=== PATIENT | male | born 1950 | race Caucasian/White ===

== ENCOUNTER → 2017-07-18 | Outpatient (CLI) | payer MEDICARE, OTHER ==
[~2017-07-18] MED LIST: OMNIPAQUE 350 MG/ML, 100ML BOTTLE ONE
== END | disposition home or self-care (01) ==
LOC: CFH 13:18
PROVIDERS: ATTEND Thoracic Surgery (Cardiothoracic Vascular Surgery)
DX: Z01.810 Encounter for preprocedural cardiovascular examination (principal); I71.2 Thoracic aortic aneurysm, without rupture; I70.0 Atherosclerosis of aorta
CPT/HCPCS: 71275; 82565; Q9967

== ENCOUNTER 2017-08-26 11:30 | Inpatient (IN) | payer MEDICARE, OTHER ==
[~2017-08-26] VITALS: Ht 182.9 cm; Wt 87.4 kg
[2017-08-26] MEDS ORDERED: ALLO100T30 PO (13:36)
[2017-08-26] MEDS ORDERED: BENA1TAB10 PO (13:36)
[2017-08-26] MEDS ORDERED: ASPI-496 PO (13:36)
[2017-08-26] MEDS ORDERED: ATOR20TA PO (13:36)
[2017-08-26] MEDS ORDERED: CITA40TA5 PO (13:36)
[2017-08-26 14:02] LABS: HEMATOCRIT 41.2 % (39.2-51.8); HEMOGLOBIN 14.1 g/dL (13.7-18.0); WHITE BLOOD COUNT 5.5 x10^3/uL (3.4-10)
[2017-08-26 14:13] LABS: ASPARTATE AMINO TRANSFERASE 13 U/L (15-37); BLOOD UREA NITROGEN 13 mg/dL (7-18)
[2017-08-27] VITALS (11 sets, daily range): BP systolic 89–133; BP diastolic 41–79
[2017-08-27] MEDS ORDERED: DO NOT GIVE MC SCH (05:00)
[2017-08-27] MEDS ORDERED: CHLORHEXIDINE MOUTHWASH 15 ML UDC MM SCH (05:00)
[2017-08-27] MEDS ORDERED: ALBUMIN HUMAN 5% 500 ML IV ONE (05:00)
[2017-08-27] MEDS ORDERED: INSULIN ASPART 100 UNITS/ML, PEN SQ-INSULIN SCH (06:00)
[2017-08-27] MEDS ORDERED: FENTANYL PF 1000 MCG/20ML ONE (06:26)
[2017-08-27] MEDS ORDERED: ROCURONIUM 10 MG/ML,10ML ONE ×2 (06:27→08:13)
[2017-08-27] MEDS ORDERED: PHENYLEPHRINE 10 MG/ML ONE (06:27)
[2017-08-27] MEDS ORDERED: CALCIUM CHLORIDE 10%, 10ML SYR ONE (06:27)
[2017-08-27] MEDS ORDERED: PROPOFOL 10 MG/ML, 20ML ONE (06:27)
[2017-08-27] MEDS ORDERED: MIDAZOLAM 10MG/2 ML ONE (06:27)
[2017-08-27] MEDS ORDERED: EPINEPHRINE 1 MG/ML, 1ML ONE (06:27)
[2017-08-27] MEDS ORDERED: LIDOCAINE GEL 2%, 5ML ONE (06:28)
[2017-08-27] MEDS ORDERED: DEXMEDETOMIDINE 200 MCG in SODIUM CHLORIDE 0.9% 48 ML IV SCH (07:30)
[2017-08-27] MEDS ORDERED: VANCOMYCIN 1,400 MG in SODIUM CHLORIDE 0.9% 250 ML IV PRN (07:30)
[2017-08-27] MEDS ORDERED: REGULAR INSULIN 62.5 UNITS in SODIUM CHLORIDE 0.9% 249.375 ML IV PRN ×2 (07:30→11:57)
[2017-08-27] MEDS ORDERED: EPINEPHRINE 2 MG in SODIUM CHLORIDE 0.9% 248 ML IV SCH (07:30)
[2017-08-27] MEDS ORDERED: MANNITOL PMX 20% 500 ML IVPB PRN (07:30)
[2017-08-27] MEDS ORDERED: PHENYLEPHRINE 10 MG in SODIUM CHLORIDE 0.9% 249 ML IV PRN ×2 (07:30→11:57)
[2017-08-27] MEDS ORDERED: POTASSIUM CHLORIDE 80 MEQ, SODIUM BICARBONATE 8.4% 10 MEQ, MAGNESIUM SULFATE 0.5 GM, LI... IV PRN (07:30)
[2017-08-27] MEDS ORDERED: CEFUROXIME 1.5 GM in SODIUM CHLORIDE 0.9% 50 ML IVPB PRN (07:30)
[2017-08-27] MEDS ORDERED: MUPIROCIN OINT 2%, 22GM TP SCH (09:00)
[2017-08-27] MEDS ORDERED: SODIUM CHLORIDE FLUSH 10ML SYR IVF SCH (09:00)
[2017-08-27] MEDS ORDERED: PROTAMINE SULFATE 10 MG/ML, 25ML ONE ×2 (10:04)
[2017-08-27] MEDS ORDERED: NITROGLYCERIN/D5W PMX 240 ML IV PRN (11:57)
[2017-08-27] MEDS ORDERED: SODIUM CHLORIDE 0.9% 1,000 ML IV PRN (11:57)
[2017-08-27] MEDS ORDERED: DEXMEDETOMIDINE 200 MCG in SODIUM CHLORIDE 0.9% 48 ML IV PRN (11:57)
[2017-08-27] MEDS ORDERED: VASOPRESSIN 50 UNIT in SODIUM CHLORIDE 0.9% 247.5 ML IV PRN (11:57)
[2017-08-27] MEDS ORDERED: DOBUTAMINE 250 MG in SODIUM CHLORIDE 0.9% 230 ML IV PRN (11:57)
[2017-08-27] MEDS ORDERED: BISACODYL 10 MG SUPP PR PRN (12:00)
[2017-08-27] MEDS ORDERED: SODIUM BICARB 8.4%, 50ML SYRINGE IV PRN (12:00)
[2017-08-27] MEDS ORDERED: EPINEPHRINE 2 MG in SODIUM CHLORIDE 0.9% 248 ML IV PRN (12:00)
[2017-08-27] MEDS ORDERED: DEXTROSE 4 GM TAB.CHEW PO PRN (12:00)
[2017-08-27] MEDS ORDERED: INSULIN REGULAR 100 UNITS/ML, 3ML VIAL IVPush PRN (12:00)
[2017-08-27] MEDS: CHLORHEXIDINE MOUTHWASH 15 ML UDC MM SCH (12:00)
[2017-08-27] MEDS ORDERED: DEXTROSE 50%, 50ML SYRINGE IVPush PRN (12:00)
[2017-08-27] MEDS ORDERED: ACETAMINOPHEN 325 MG TABLET PO PRN (12:00)
[2017-08-27] MEDS ORDERED: MIDAZOLAM 1 MG/ML, 5ML IVPush PRN (12:00)
[2017-08-27] MEDS: KSCALE TO 4.5 IV SCH ×2 (12:00→18:00)
[2017-08-27] MEDS ORDERED: ACETAMINOPHEN 650 MG SUPP PR PRN (12:00)
[2017-08-27] MEDS ORDERED: BISACODYL 5 MG EC TABLET PO PRN (12:00)
[2017-08-27] MEDS ORDERED: GLUCAGON 1 MG IM PRN (12:00)
[2017-08-27] MEDS ORDERED: PROCHLORPERAZINE 5 MG/ML, 2ML IVPush PRN (12:00)
[2017-08-27] MEDS ORDERED: LACTATED RINGERS 1,000 ML IV PRN (12:00)
[2017-08-27] MEDS ORDERED: methylPREDNISolone SOD SUCC 125 MG/2 ML ONE (12:09)
[2017-08-27] MEDS ORDERED: SODIUM BICARB 8.4%, 50ML SYRINGE ONE ×2 (12:09→12:10)
[2017-08-27] MEDS ORDERED: LIDOCAINE 2% 100MG/5ML SYRINGE ONE (12:09)
[2017-08-27] MEDS ORDERED: ALBUMIN HUMAN 25% 50 ML ONE (12:10)
[2017-08-27] MEDS ORDERED: HEPARIN 1,000 UNITS/ML, 30ML ONE (12:10)
[2017-08-27] MEDS ORDERED: TRANEXAMIC ACID 100 MG/ML, 10ML ONE (12:11)
[2017-08-27 12:32] LABS: ABG COLLECTION SITE ARTERIAL LINE
[2017-08-27] MEDS: morphine SULFATE 10 MG/ML, 1ML IVPush PRN ×2 (12:45→13:15)
[2017-08-27] MEDS ORDERED: CALCIUM CHLORIDE 13.6 MEQ in SODIUM CHLORIDE 0.9% 100 ML IV ONE (13:00)
[2017-08-27] MEDS: MAGNESIUM SULFATE 1 GM in SODIUM CHLORIDE 0.9% 50 ML IVPB SCH (14:10)
[2017-08-27] MEDS ORDERED: POTASSIUM CHLORIDE 30 MEQ in SODIUM CHLORIDE 0.9% 100 ML IV ONE (14:30)
[2017-08-27 15:03] LABS: HEMATOCRIT 26.2 % (39.2-51.8); HEMOGLOBIN 8.8 g/dL (13.7-18.0)
[2017-08-27] MEDS ORDERED: NOVOSEVEN RT (FACTOR VIIA) RECOMB 1,000 MCG IVPush ONE ×2 (15:30)
[2017-08-27] MEDS ORDERED: DEXMEDETOMIDINE 1,000 MCG in SODIUM CHLORIDE 0.9% 240 ML IV PRN (16:00)
[2017-08-27] MEDS: INSULIN ASPART 100 UNITS/ML, PEN SQ-INSULIN SCH ×2 (16:00→21:00)
[2017-08-27] MEDS: ONDANSETRON 2MG/ML, 2ML IVPush PRN (18:34)
[2017-08-27 18:47] LABS: HEMATOCRIT 28.2 % (39.2-51.8); HEMOGLOBIN 9.8 g/dL (13.7-18.0)
[2017-08-27] MEDS: CEFUROXIME 1.5 GM in SODIUM CHLORIDE 0.9% 50 ML IVPB SCH (19:34)
[2017-08-27] MEDS: HYDROcodone/APAP 10/325 MG TABLET PO PRN (20:34)
[2017-08-27] MEDS: VANCOMYCIN 1,300 MG in SODIUM CHLORIDE 0.9% 250 ML IVPB SCH (20:40)
[2017-08-27] MEDS: MUPIROCIN OINT 2%, 22GM NAS SCH (21:00)
[2017-08-27] MEDS: SODIUM CHLORIDE FLUSH 10ML SYR IVF SCH (21:11)
[2017-08-27] MEDS: OXYcodone IR 5MG TABLET PO PRN (21:53)
[2017-08-28 00:21] LABS: HEMATOCRIT 27.4 % (39.2-51.8); HEMOGLOBIN 9.3 g/dL (13.7-18.0)
[2017-08-28] MEDS: HYDROcodone/APAP 10/325 MG TABLET PO PRN ×4 (00:29→20:09)
[2017-08-28] MEDS: INSULIN ASPART 100 UNITS/ML, PEN SQ-INSULIN SCH ×6 (00:30→20:12)
[2017-08-28] MEDS: morphine SULFATE 10 MG/ML, 1ML IVPush PRN ×2 (01:30→02:59)
[2017-08-28] MEDS: CHLORHEXIDINE MOUTHWASH 15 ML UDC MM SCH ×2 (01:53→12:27)
[2017-08-28] MEDS: OXYcodone IR 5MG TABLET PO PRN (02:21)
[2017-08-28] MEDS: KSCALE TO 4.5 IV SCH ×2 (06:00)
[2017-08-28 06:04] LABS: ABG COLLECTION SITE ARTERIAL LINE
[2017-08-28 06:18] LABS: HEMATOCRIT 26.7 % (39.2-51.8); HEMOGLOBIN 9.1 g/dL (13.7-18.0); WHITE BLOOD COUNT 9.8 x10^3/uL (3.4-10)
[2017-08-28 06:23] LABS: BLOOD UREA NITROGEN 15 mg/dL (7-18)
[2017-08-28] MEDS ORDERED: METOPROLOL TARTRATE 25 MG TABLET PO SCH (07:00)
[2017-08-28] MEDS ORDERED: KETOROLAC 30 MG/1 ML IVPush PRN (07:00)
[2017-08-28] MEDS ORDERED: POTASSIUM CHLORIDE PMX 100 ML IV ONE (07:00)
[2017-08-28] MEDS: CEFUROXIME 1.5 GM in SODIUM CHLORIDE 0.9% 50 ML IVPB SCH (07:51)
[2017-08-28] MEDS: FUROSEMIDE 40 MG/4 ML IV SCH ×2 (07:52→17:00)
[2017-08-28] MEDS: LISINOPRIL 10 MG TABLET PO SCH ×2 (08:11→21:00)
[2017-08-28] MEDS: POTASSIUM CHLORIDE 20 MEQ TAB.ER.PRT PO SCH ×2 (08:11→17:00)
[2017-08-28] MEDS: ASPIRIN 81 MG TABLET EC PO SCH (08:11)
[2017-08-28] MEDS: ONDANSETRON 2MG/ML, 2ML IVPush PRN (08:30)
[2017-08-28] MEDS ORDERED: DIAZEPAM 5 MG/ML, 2ML IV SCH (09:00)
[2017-08-28] MEDS: WARFARIN BIOPROSTHETIC VALVE PROTOCOL 2-3 XX SCH (09:00)
[2017-08-28] MEDS: VANCOMYCIN 1,300 MG in SODIUM CHLORIDE 0.9% 250 ML IVPB SCH (09:11)
[2017-08-28] MEDS: SODIUM CHLORIDE FLUSH 10ML SYR IVF SCH ×2 (12:23→20:07)
[2017-08-28] MEDS: ALLOPURINOL 100 MG TABLET PO SCH (12:24)
[2017-08-28] MEDS: MUPIROCIN OINT 2%, 22GM NAS SCH ×2 (12:24→20:08)
[2017-08-28] MEDS: CITALOPRAM 20 MG TABLET PO SCH (12:24)
[2017-08-28 12:37] LABS: HEMATOCRIT 27.2 % (39.2-51.8); HEMOGLOBIN 9.4 g/dL (13.7-18.0)
[2017-08-28] MEDS: MAGNESIUM SULFATE 1 GM in SODIUM CHLORIDE 0.9% 50 ML IVPB SCH (13:26)
[2017-08-28] MEDS ORDERED: WARFARIN 5 MG TABLET PO-COUM ONE (18:00)
[2017-08-28] MEDS: ATORVASTATIN 20 MG TABLET PO SCH (20:30)
[2017-08-29] MEDS: CHLORHEXIDINE MOUTHWASH 15 ML UDC MM SCH ×2 (00:45→13:37)
[2017-08-29] MEDS: HYDROcodone/APAP 10/325 MG TABLET PO PRN ×2 (00:48→21:39)
[2017-08-29 04:20] LABS: ABG COLLECTION SITE LEFT BRACHIAL
[2017-08-29] MEDS: HYDROcodone/APAP 5/325 TABLET PO PRN (05:21)
[2017-08-29 06:33] LABS: HEMATOCRIT 27.1 % (39.2-51.8); HEMOGLOBIN 9.3 g/dL (13.7-18.0); WHITE BLOOD COUNT 10.5 x10^3/uL (3.4-10)
[2017-08-29 06:44] LABS: BLOOD UREA NITROGEN 14 mg/dL (7-18)
[2017-08-29] MEDS: INSULIN ASPART 100 UNITS/ML, PEN SQ-INSULIN SCH ×4 (06:48→21:31)
[2017-08-29] MEDS ORDERED: MAGNESIUM HYDROXIDE 8%, 30ML UDC PO PRN (07:30)
[2017-08-29] MEDS: LISINOPRIL 10 MG TABLET PO SCH ×2 (07:53→21:27)
[2017-08-29] MEDS: POTASSIUM CHLORIDE 20 MEQ TAB.ER.PRT PO SCH ×2 (07:53→16:58)
[2017-08-29] MEDS: ALLOPURINOL 100 MG TABLET PO SCH (07:53)
[2017-08-29] MEDS: ASPIRIN 81 MG TABLET EC PO SCH (07:54)
[2017-08-29] MEDS: CITALOPRAM 20 MG TABLET PO SCH (07:54)
[2017-08-29] MEDS: FUROSEMIDE 40 MG/4 ML IV SCH ×2 (07:55→17:02)
[2017-08-29] MEDS: MUPIROCIN OINT 2%, 22GM NAS SCH ×2 (07:55→21:29)
[2017-08-29] MEDS: SODIUM CHLORIDE FLUSH 10ML SYR IVF SCH ×3 (07:56→21:30)
[2017-08-29] MEDS: WARFARIN BIOPROSTHETIC VALVE PROTOCOL 2-3 XX SCH (10:42)
[2017-08-29] MEDS: MAGNESIUM SULFATE 1 GM in SODIUM CHLORIDE 0.9% 50 ML IVPB SCH (13:37)
[2017-08-29 16:55] VITALS: BP 127/67
[2017-08-29] MEDS ORDERED: WARFARIN 5 MG TABLET PO-COUM SCH (18:00)
[2017-08-29 19:45] VITALS: BP 110/67
[2017-08-29] MEDS: ATORVASTATIN 20 MG TABLET PO SCH (21:28)
[2017-08-30 02:07] VITALS: BP 125/79
[2017-08-30] MEDS: HYDROcodone/APAP 10/325 MG TABLET PO PRN ×2 (02:15→20:29)
[2017-08-30 05:50] LABS: BLOOD UREA NITROGEN 11 mg/dL (7-18)
[2017-08-30 06:11] LABS: HEMATOCRIT 25.5 % (39.2-51.8); HEMOGLOBIN 8.7 g/dL (13.7-18.0); WHITE BLOOD COUNT 6.7 x10^3/uL (3.4-10)
[2017-08-30 06:47] VITALS: BP 136/69
[2017-08-30] MEDS: INSULIN ASPART 100 UNITS/ML, PEN SQ-INSULIN SCH ×2 (07:00→11:31)
[2017-08-30] MEDS: FUROSEMIDE 40 MG/4 ML IV SCH ×2 (07:30→17:00)
[2017-08-30] MEDS: ASPIRIN 81 MG TABLET EC PO SCH (08:08)
[2017-08-30] MEDS: POTASSIUM CHLORIDE 20 MEQ TAB.ER.PRT PO SCH ×2 (08:09→17:13)
[2017-08-30] MEDS: ALLOPURINOL 100 MG TABLET PO SCH (08:09)
[2017-08-30] MEDS: LISINOPRIL 10 MG TABLET PO SCH ×2 (08:09→20:19)
[2017-08-30] MEDS: SODIUM CHLORIDE FLUSH 10ML SYR IVF SCH ×4 (08:09→20:19)
[2017-08-30] MEDS: CITALOPRAM 20 MG TABLET PO SCH (08:09)
[2017-08-30] MEDS: WARFARIN BIOPROSTHETIC VALVE PROTOCOL 2-3 XX SCH (08:10)
[2017-08-30] MEDS: MUPIROCIN OINT 2%, 22GM NAS SCH ×2 (08:10→20:18)
[2017-08-30] MEDS ORDERED: DOCUSATE 100 MG CAPSULE ONE (08:19)
[2017-08-30] MEDS: DOCUSATE 100 MG CAPSULE PO SCH ×2 (08:23→20:19)
[2017-08-30] MEDS ORDERED: DOCUSATE 50 MG/5 ML, 10ML UDC PO SCH (09:00)
[2017-08-30] MEDS ORDERED: FILTER 0.22 MICRON FOR AMIODARONE IV PRN (10:00)
[2017-08-30] MEDS ORDERED: AMIODARONE 900 MG in DEXTROSE 5% 482 ML IV PRN (10:00)
[2017-08-30] MEDS ORDERED: AMIODARONE 150 MG in DEXTROSE 5% 100 ML IV ONE (10:00)
[2017-08-30] MEDS: HYDROcodone/APAP 5/325 TABLET PO PRN (10:40)
[2017-08-30 14:54] VITALS: BP 106/70
[2017-08-30] MEDS ORDERED: WARFARIN 7.5 MG TABLET PO-COUM SCH (18:00)
[2017-08-30 20:11] VITALS: BP 110/69
[2017-08-30] MEDS: ATORVASTATIN 20 MG TABLET PO SCH (20:19)
[2017-08-31 02:21] VITALS: BP 113/70
[2017-08-31] MEDS: HYDROcodone/APAP 10/325 MG TABLET PO PRN ×2 (03:01→22:50)
[2017-08-31 05:23] LABS: BLOOD UREA NITROGEN 18 mg/dL (7-18)
[2017-08-31 05:28] LABS: HEMOGLOBIN 8.9 g/dL (13.7-18.0); WHITE BLOOD COUNT 5.7 x10^3/uL (3.4-10)
[2017-08-31 06:35] VITALS: BP 130/63
[2017-08-31] MEDS: MUPIROCIN OINT 2%, 22GM NAS SCH ×2 (08:45→22:53)
[2017-08-31] MEDS: ALLOPURINOL 100 MG TABLET PO SCH (08:46)
[2017-08-31] MEDS: DOCUSATE 100 MG CAPSULE PO SCH ×2 (08:46→22:50)
[2017-08-31] MEDS: ASPIRIN 81 MG TABLET EC PO SCH (08:46)
[2017-08-31] MEDS: POTASSIUM CHLORIDE 20 MEQ TAB.ER.PRT PO SCH ×2 (08:46→22:51)
[2017-08-31] MEDS: CITALOPRAM 20 MG TABLET PO SCH (08:46)
[2017-08-31] MEDS: LISINOPRIL 10 MG TABLET PO SCH ×2 (08:46→22:50)
[2017-08-31] MEDS: SODIUM CHLORIDE FLUSH 10ML SYR IVF SCH ×4 (08:47→22:53)
[2017-08-31] MEDS: FUROSEMIDE 40 MG/4 ML IV SCH ×2 (08:47→17:39)
[2017-08-31] MEDS: WARFARIN BIOPROSTHETIC VALVE PROTOCOL 2-3 XX SCH (08:50)
[2017-08-31 13:09] VITALS: BP 100/67
[2017-08-31] MEDS: HYDROcodone/APAP 5/325 TABLET PO PRN (13:34)
[2017-08-31] MEDS ORDERED: WARFARIN 10 MG TABLET PO-COUM SCH (18:00)
[2017-08-31 19:57] VITALS: BP 96/63
[2017-08-31] MEDS: ATORVASTATIN 20 MG TABLET PO SCH (22:51)
[2017-09-01 01:39] VITALS: BP 112/58
[2017-09-01] MEDS: HYDROcodone/APAP 10/325 MG TABLET PO PRN ×2 (04:23→12:55)
[2017-09-01 04:50] LABS: HEMATOCRIT 27.5 % (39.2-51.8); HEMOGLOBIN 9.6 g/dL (13.7-18.0); WHITE BLOOD COUNT 5.2 x10^3/uL (3.4-10)
[2017-09-01 04:53] LABS: BLOOD UREA NITROGEN 20 mg/dL (7-18)
[2017-09-01 08:00] VITALS: BP 120/77
[2017-09-01] MEDS: SODIUM CHLORIDE FLUSH 10ML SYR IVF SCH ×2 (09:00→10:03)
[2017-09-01] MEDS: WARFARIN BIOPROSTHETIC VALVE PROTOCOL 2-3 XX SCH (09:00)
[2017-09-01] MEDS ORDERED: POTA20TA14 PO (09:47)
[2017-09-01] MEDS ORDERED: LISI-167 PO (09:47)
[2017-09-01] MEDS ORDERED: ASPI-621 PO (09:47)
[2017-09-01] MEDS ORDERED: WARF5TAB PO (09:47)
[2017-09-01] MEDS ORDERED: DOCU-131 PO (09:47)
[2017-09-01] MEDS ORDERED: FURO40TA6 PO (09:47)
[2017-09-01] MEDS: POTASSIUM CHLORIDE 20 MEQ TAB.ER.PRT PO SCH (10:00)
[2017-09-01] MEDS: ALLOPURINOL 100 MG TABLET PO SCH (10:00)
[2017-09-01] MEDS: ASPIRIN 81 MG TABLET EC PO SCH (10:00)
[2017-09-01] MEDS: CITALOPRAM 20 MG TABLET PO SCH (10:01)
[2017-09-01] MEDS: LISINOPRIL 10 MG TABLET PO SCH (10:01)
[2017-09-01] MEDS: DOCUSATE 100 MG CAPSULE PO SCH (10:01)
[2017-09-01] MEDS: MUPIROCIN OINT 2%, 22GM NAS SCH (10:02)
[2017-09-01] MEDS: FUROSEMIDE 40 MG/4 ML IV SCH (10:04)
[2017-09-01] MEDS ORDERED: HYDR-3245 PO (14:30)
[2017-09-01] MEDS ORDERED: WARFARIN 7.5 MG TABLET PO-COUM ONE (18:00)
== END 2017-09-01 15:40 | disposition home health service (06) | DRG 219 ==
LOC: 5SO 08-27 04:22 → EDSTATUS 08-27 07:30 → CSU 08-27 08:22 → 5SO 08-29 15:01
PROVIDERS: ADMIT Thoracic Surgery (Cardiothoracic Vascular Surgery); ATTEND Thoracic Surgery (Cardiothoracic Vascular Surgery)
PROC: 02RF08Z Replacement of Aortic Valve with Zooplastic Tissue, Open Approach (ICD-10-PCS; 2017-08-27)
PROC: 02RX08Z Replacement of Thoracic Aorta, Ascending/Arch with Zooplastic Tissue, Open Approach (ICD-10-PCS; 2017-08-27)
PROC: 5A1223Z Performance of Cardiac Pacing, Continuous (ICD-10-PCS; 2017-08-27)
PROC: 5A1221Z Performance of Cardiac Output, Continuous (ICD-10-PCS; 2017-08-27)
PROC: B24BZZ4 Ultrasonography of Heart with Aorta, Transesophageal (ICD-10-PCS; 2017-08-27)
PROC: 30233N1 Transfusion of Nonautologous Red Blood Cells into Peripheral Vein, Percutaneous Approach (ICD-10-PCS; 2017-08-27)
PROC: 02HP32Z Insertion of Monitoring Device into Pulmonary Trunk, Percutaneous Approach (ICD-10-PCS; 2017-08-27)
PROC: 4A133B3 Monitoring of Arterial Pressure, Pulmonary, Percutaneous Approach (ICD-10-PCS; 2017-08-27)
PROC: 4A1239Z Monitoring of Cardiac Output, Percutaneous Approach (ICD-10-PCS; 2017-08-27)
PROC: 30233L1 Transfusion of Nonautologous Fresh Plasma into Peripheral Vein, Percutaneous Approach (ICD-10-PCS; 2017-08-27)
PROC: 30233R1 Transfusion of Nonautologous Platelets into Peripheral Vein, Percutaneous Approach (ICD-10-PCS; 2017-08-27)
PROC: 30233M1 Transfusion of Nonautologous Plasma Cryoprecipitate into Peripheral Vein, Percutaneous Approach (ICD-10-PCS; 2017-08-27)
PROC: 30233K1 Transfusion of Nonautologous Frozen Plasma into Peripheral Vein, Percutaneous Approach (ICD-10-PCS; 2017-08-27)
PROC: B246ZZ4 Ultrasonography of Right and Left Heart, Transesophageal (ICD-10-PCS; principal; 2017-08-27 07:30)
DX: I08.0 Rheumatic disorders of both mitral and aortic valves (principal); J96.20 Acute and chronic respiratory failure, unspecified whether with hypoxia or hypercapnia; I11.0 Hypertensive heart disease with heart failure; I50.42 Chronic combined systolic (congestive) and diastolic (congestive) heart failure; D62 Acute posthemorrhagic anemia; I71.2 Thoracic aortic aneurysm, without rupture; E78.5 Hyperlipidemia, unspecified; F41.9 Anxiety disorder, unspecified; F10.20 Alcohol dependence, uncomplicated; I25.10 Atherosclerotic heart disease of native coronary artery without angina pectoris; I70.0 Atherosclerosis of aorta; R09.02 Hypoxemia; Z79.82 Long term (current) use of aspirin; Z79.899 Other long term (current) drug therapy
CPT/HCPCS: 36415; 36600; 71010; 71020; 80048; 80053; 81003; 82040; 82330; 82800; 82803; 82810; 82947; 82962; 83036; 83735; 84132; 84295; 85014; 85018; 85025; 85049; 85347; 85610; 85730; 86850; 86900; 86923; 87081; 88304; 88305; 88311; 93005; 93312; 93321; 93325; 93880; 94002; 94003; C1768; J0171; J0697; J1644; J1815; J1940; J2250; J2405; J2704; J2720; J3010; J3370; J3475; J3480; J3490; J7189; P9045; P9047; C1751; C1760; C1762; J0282; J2270; J2370; J2930; J7050; J7060; J7120; P9012; P9016; P9017; P9035